=== PATIENT | female | born 1945 | race Caucasian/White ===

== ENCOUNTER 2020-12-17 07:51 | Emergency (ER) | payer OTHER ==
[~2020-12-17] VITALS: Ht 154.9 cm; Wt 86.2 kg
[~2020-12-17 07:51] MED LIST: HYDACE5 PO
[2020-12-17 08:28] LABS: BASOPHILS ABSOLUTE AUTO 0.03 K/mm3 (0.00-0.23); BASOPHILS PERCENT AUTO 0 % (0-2); EOSINOPHILS ABSOLUTE AUTO 0.16 K/mm3 (0.00-0.68); EOSINOPHILS PERCENT AUTO 2 % (0-6); Hematocrit 36.1 % (33.0-51.0); Hemoglobin 11.4 g/dL (11.5-16.0); IMMATURE GRAN ABSOLUTE AUTO 0.03 K/mm3 (0.00-0.10); IMMATURE GRAN PERCENT AUTO 0 % (0-1); LYMPHOCYTES ABSOLUTE AUTO 1.06 K/mm3 (0.84-5.20); LYMPHOCYTES PERCENT AUTO 11 % (21-46); MONOCYTES ABSOLUTE AUTO 0.33 K/mm3 (0.16-1.47); MONOCYTES PERCENT AUTO 4 % (4-13); Mean Corpuscular HGB 28.1 pg (26.0-34.0); Mean Corpuscular HGB Conc 31.6 g/dL (31.5-36.5); Mean Corpuscular Volume 89 fL (80-100); Mean Platelet Volume 9.5 fL (9.1-12.4); NEUTROPHILS ABSOLUTE AUTO 7.65 K/mm3 (1.96-9.15); NEUTROPHILS PERCENT AUTO 83 % (41-73); Platelet Count 237 K/mm3 (150-400); RDW Coefficient Variation 14.9 % (11.7-14.2); RDW Standard Deviation 49.3 fL (35.1-46.3); Red Blood Cell Count 4.05 M/mm3 (3.80-5.20); White Blood Cell Count 9.26 K/mm3 (4.00-11.30)
[2020-12-17 08:41] LABS: Alanine Aminotransfer (ALT/SGP 19 U/L (12-78); Albumin, Blood 3.6 g/dL (3.4-5.0); Alk Phos 80 U/L (50-136); Anion Gap 6 mmol/L (6-16); Aspartate Aminotrans (AST/SGOT 13 U/L (12-37); Bilirubin, Total 0.8 mg/dL (0.1-1.0); Blood Urea Nitrogen 11 mg/dL (8-24); Bun/Creatinine Ratio 17.6 (12.0-20.0); CO2, Blood 27 mmol/L (21-32); Calcium, Blood 8.9 mg/dL (8.5-10.1); Chloride, Blood 107 mmol/L (98-108); Creatinine, Blood 0.63 mg/dL (0.40-1.00); Globulin, Blood 3.7 g/dL (2.2-4.0); Glomerular Filtration Rate >60 (60-); Glucose, Blood 155 mg/dL (70-99); Potassium, Blood 3.3 mmol/L (3.5-5.5); Sodium, Blood 140 mmol/L (136-145); Total Protein, Blood 7.3 g/dL (6.4-8.2)
[2020-12-17] MEDS ORDERED: Zofran4 MG PO (10:08)
[2021-02-09] MEDS ORDERED: CLOBET30L TOP (13:31)
[2021-02-21] MEDS ORDERED: ACET325 PO (13:58)
[2021-02-21] MEDS ORDERED: DOCU100 PO (13:59)
[2021-02-21] MEDS ORDERED: OXAYDO5 M1 PO (14:01)
== END 2020-12-17 10:19 | disposition home or self-care (01) ==
LOC: ER 07:51
PROVIDERS: Physician Assistant
DX: K43.9 Ventral hernia without obstruction or gangrene (principal); Z88.5 Allergy status to narcotic agent
CPT/HCPCS: 36415; 74160; 80053; 83690; 85025; 96374-59; 99284-25; J3010; J7030; Q9967

== ENCOUNTER 2021-02-14 10:50 | Day surgery (SDC) | payer OTHER ==
[~2021-02-14] VITALS: Ht 154.9 cm; Wt 74.9 kg
[~2021-02-14 10:50] MED LIST changes: +CLOBET30L TOP; +Zofran4 MG PO
== END 2021-02-14 13:57 | disposition home or self-care (01) ==
LOC: ORSCSDS 10:50
PROVIDERS: Surgery
PROC: 0DJD8ZZ Inspection of Lower Intestinal Tract, Via Natural or Artificial Opening Endoscopic (ICD-10-PCS; principal; 2021-02-14 12:00)
DX: Z12.11 Encounter for screening for malignant neoplasm of colon (principal); D50.9 Iron deficiency anemia, unspecified; K57.30 Diverticulosis of large intestine without perforation or abscess without bleeding; R10.30 Lower abdominal pain, unspecified; E78.00 Pure hypercholesterolemia, unspecified; R73.9 Hyperglycemia, unspecified; E66.9 Obesity, unspecified; Z68.33 Body mass index [BMI] 33.0-33.9, adult; Z79.899 Other long term (current) drug therapy
CPT/HCPCS: J2001; J2704; J7120

== ENCOUNTER → 2023-01-23 | Outpatient (CLI) | payer OTHER ==
[~2023-01-23] MED LIST changes: +ACET325 PO; +DOCU100 PO; +OXAYDO5 M1 PO
== END ==
LOC: LAB 08:05 → PLD 08:05 → LAB SHORT 08:05
DX: L60.2 Onychogryphosis (principal); B35.1 Tinea unguium
CPT/HCPCS: 88304; 88312

== ENCOUNTER → 2023-05-06 | Outpatient (CLI) | payer OTHER ==
[2023-05-06 08:29] LABS: BASOPHILS ABSOLUTE AUTO 0.03 K/mm3 (0.00-0.23); BASOPHILS PERCENT AUTO 1 % (0-2); EOSINOPHILS ABSOLUTE AUTO 0.09 K/mm3 (0.00-0.68); EOSINOPHILS PERCENT AUTO 2 % (0-6); Hematocrit 29.8 % (33.0-51.0); Hemoglobin 9.8 g/dL (11.5-16.0); IMMATURE GRAN ABSOLUTE AUTO 0.01 K/mm3 (0.00-0.10); IMMATURE GRAN PERCENT AUTO 0 % (0-1); LYMPHOCYTES ABSOLUTE AUTO 0.67 K/mm3 (0.84-5.20); LYMPHOCYTES PERCENT AUTO 11 % (21-46); MONOCYTES ABSOLUTE AUTO 0.42 K/mm3 (0.16-1.47); MONOCYTES PERCENT AUTO 7 % (4-13); Mean Corpuscular HGB 28.4 pg (26.0-34.0); Mean Corpuscular HGB Conc 32.9 g/dL (31.5-36.5); Mean Corpuscular Volume 86 fL (80-100); Mean Platelet Volume 8.8 fL (9.1-12.4); NEUTROPHILS ABSOLUTE AUTO 4.82 K/mm3 (1.96-9.15); NEUTROPHILS PERCENT AUTO 80 % (41-73); Platelet Count 307 K/mm3 (150-400); RDW Coefficient Variation 14.9 % (11.7-14.2); RDW Standard Deviation 47.4 fL (35.1-46.3); Red Blood Cell Count 3.45 M/mm3 (3.80-5.20); White Blood Cell Count 6.04 K/mm3 (4.00-11.30)
[2023-05-06 08:44] LABS: Albumin, Blood 3.1 g/dL (3.4-5.0); Albumin/Globulin Ratio 0.7 (0.8-1.8); Bilirubin, Total 0.4 mg/dL (0.1-1.0); Bun/Creatinine Ratio 17.5 (12.0-20.0); Calcium, Blood 9.1 mg/dL (8.5-10.1); Creatinine, Blood 0.57 mg/dL (0.40-1.00); Globulin, Blood 4.3 g/dL (2.2-4.0); Potassium, Blood 3.7 mmol/L (3.5-5.5); Total Protein, Blood 7.4 g/dL (6.4-8.2)
== END | disposition home or self-care (01) ==
LOC: LAB SHORT 08:24 → LAB 08:24
PROVIDERS: Physician Assistant
DX: M25.431 Effusion, right wrist (principal); M25.432 Effusion, left wrist
CPT/HCPCS: 80053; 85025; 85651

== ENCOUNTER 2024-09-11 11:45 | Inpatient (IN) | payer OTHER ==
[~2024-09-11] VITALS: Ht 152.4 cm; Wt 74.8 kg
[2024-09-11] MEDS ORDERED: EUTHYROX50 MC1 PO (12:48)
[2024-09-11] MEDS ORDERED: Prednisone2.5 MG PO (12:48)
[2024-09-11] MEDS ORDERED: NS 1,000 ML IV SCH (13:15)
[2024-09-11 13:43] LABS: Source, Urine Clean Catch
[2024-09-11 13:48] LABS: BASOPHILS ABSOLUTE AUTO 0.02 K/mm3 (0.00-0.23); BASOPHILS PERCENT AUTO 0 % (0-2); EOSINOPHILS ABSOLUTE AUTO 0.01 K/mm3 (0.00-0.68); EOSINOPHILS PERCENT AUTO 0 % (0-6); Hematocrit 29.1 % (33.0-51.0); Hemoglobin 9.4 g/dL (11.5-16.0); IMMATURE GRAN ABSOLUTE AUTO 0.13 K/mm3 (0.00-0.10); IMMATURE GRAN PERCENT AUTO 1 % (0-1); LYMPHOCYTES ABSOLUTE AUTO 0.58 K/mm3 (0.84-5.20); LYMPHOCYTES PERCENT AUTO 4 % (21-46); MONOCYTES ABSOLUTE AUTO 0.92 K/mm3 (0.16-1.47); MONOCYTES PERCENT AUTO 7 % (4-13); Mean Corpuscular HGB 27.2 pg (26.0-34.0); Mean Corpuscular HGB Conc 32.3 g/dL (31.5-36.5); Mean Corpuscular Volume 84 fL (80-100); Mean Platelet Volume 9.9 fL (9.1-12.4); NEUTROPHILS ABSOLUTE AUTO 12.33 K/mm3 (1.96-9.15); NEUTROPHILS PERCENT AUTO 88 % (41-73); Platelet Count 274 K/mm3 (150-400); RDW Coefficient Variation 15.6 % (11.7-14.2); RDW Standard Deviation 47.4 fL (35.1-46.3); Red Blood Cell Count 3.46 M/mm3 (3.80-5.20); White Blood Cell Count 13.99 K/mm3 (4.00-11.30)
[2024-09-11 13:51] LABS: Appearance, Urine Clear (Clear); Bilirubin, Urine Neg (Neg); Blood, Urine 3+ (Neg); Color, Urine Amber (P-Yellow); Glucose Qualitative, Urine Neg (Neg); Ketones, Urine 3+ (Neg); Leukocyte Esterase, Urine 1+ (Neg); Nitrite, Urine Neg (Neg); Protein, Urine 3+ (Neg); Specific Gravity, Urine 1.015 (1.003-1.022); Urobilinogen, Urine 1+ (Normal)
[2024-09-11 13:57] LABS: Bacteria Many /hpf; Mucus Light (0-Heavy); Squamous Epithelial Cells Few /hpf (Few)
[2024-09-11 14:16] LABS: Magnesium, Blood 1.9 mg/dL (1.6-2.4)
[2024-09-11 14:17] LABS: Albumin, Blood 2.4 g/dL (3.4-5.0); Albumin/Globulin Ratio 0.6 (0.8-1.8); Bilirubin, Total 0.7 mg/dL (0.1-1.0); Bun/Creatinine Ratio 22.5 (12.0-20.0); Calcium, Blood 8.6 mg/dL (8.5-10.1); Creatinine, Blood 0.67 mg/dL (0.40-1.00); Globulin, Blood 4.3 g/dL (2.2-4.0); Potassium, Blood 3.1 mmol/L (3.5-5.5); Total Protein, Blood 6.7 g/dL (6.4-8.2)
[2024-09-11] MEDS ORDERED: CefTRIAXone Sodium 1,000 MG in NS 50 ML IV ONE (14:20)
[2024-09-11 14:22] LABS: Free Thyroxine 1.45 ng/dL (0.70-1.60)
[2024-09-11 14:25] LABS: Thyroid Stimulating Hormone 0.713 uIU/mL (0.360-4.800)
[2024-09-11] MEDS ORDERED: Azithromycin 500 MG in NS 250 ML IV ONE (14:25)
[2024-09-11] MEDS ORDERED: Potassium Chloride 20 MEQ/15 ML UDC PO ONE (14:30)
[2024-09-11] MEDS ORDERED: Potassium Chloride 20 MEQ TabCR PO ONE (14:30)
[2024-09-11 14:37] LABS: Influenza A, PCR NEGATIVE (NEGATIVE); Influenza B, PCR NEGATIVE (NEGATIVE); Resp Syncytial Virus, PCR NEGATIVE (NEGATIVE)
[2024-09-11] MEDS ORDERED: NS 1,500 ML IV SCH (15:00)
[2024-09-11] MEDS ORDERED: FLU VACC TS2024-25(6MOS UP)/PF 45 MCG/0.5 ML SYRINGE IM SCH (15:20)
[2024-09-11 16:44] LABS: SARS-Cov-2 (COVID-19) PCR, MMC POSITIVE (NEGATIVE)
[2024-09-11 17:59] VITALS: BP 108/72
[2024-09-11 19:40] VITALS: BP 125/72
[2024-09-12 03:45] VITALS: BP 127/72
[2024-09-12] MEDS ORDERED: Levothyroxine Sodium 0.05 MG Tab PO SCH (06:00)
[2024-09-12 07:46] VITALS: BP 140/64
[2024-09-12 08:48] LABS: BASOPHILS ABSOLUTE AUTO 0.02 K/mm3 (0.00-0.23); BASOPHILS PERCENT AUTO 0 % (0-2); EOSINOPHILS ABSOLUTE AUTO 0.13 K/mm3 (0.00-0.68); EOSINOPHILS PERCENT AUTO 1 % (0-6); Hematocrit 28.2 % (33.0-51.0); IMMATURE GRAN ABSOLUTE AUTO 0.09 K/mm3 (0.00-0.10); IMMATURE GRAN PERCENT AUTO 1 % (0-1); LYMPHOCYTES ABSOLUTE AUTO 0.88 K/mm3 (0.84-5.20); LYMPHOCYTES PERCENT AUTO 9 % (21-46); MONOCYTES ABSOLUTE AUTO 0.79 K/mm3 (0.16-1.47); MONOCYTES PERCENT AUTO 8 % (4-13); Mean Corpuscular HGB 26.6 pg (26.0-34.0); Mean Corpuscular HGB Conc 31.9 g/dL (31.5-36.5); Mean Corpuscular Volume 83 fL (80-100); Mean Platelet Volume 9.8 fL (9.1-12.4); NEUTROPHILS ABSOLUTE AUTO 7.81 K/mm3 (1.96-9.15); NEUTROPHILS PERCENT AUTO 80 % (41-73); Platelet Count 281 K/mm3 (150-400); RDW Coefficient Variation 15.8 % (11.7-14.2); RDW Standard Deviation 48.2 fL (35.1-46.3); Red Blood Cell Count 3.38 M/mm3 (3.80-5.20); White Blood Cell Count 9.72 K/mm3 (4.00-11.30)
[2024-09-12] MEDS ORDERED: Enoxaparin 40 MG/0.4 ML SYR SC SCH (09:00)
[2024-09-12 09:06] LABS: Bun/Creatinine Ratio 14.8 (12.0-20.0); Calcium, Blood 8.3 mg/dL (8.5-10.1); Creatinine, Blood 0.61 mg/dL (0.40-1.00); Potassium, Blood 3.5 mmol/L (3.5-5.5)
[2024-09-12] MEDS ORDERED: Loperamide HCl 2 MG Cap PO PRN (09:15)
[2024-09-12 17:06] VITALS: BP 135/67
[2024-09-12] MEDS ORDERED: NS 250 ML IV PRN (17:15)
[2024-09-12] MEDS ORDERED: CefTRIAXone Sodium 1,000 MG in NS 100 ML IV SCH (18:00)
[2024-09-12] MEDS ORDERED: Azithromycin 500 MG in NS 250 ML IV SCH (18:00)
--- NOTE | 2024-09-12 18:11 | NUR ---
NO ACUTE CHANGES, ALERT AND ORIENTED X4, CLEARLY MAKES NEEDS KNOWN, MEDICATED FOR DIARREA, BARRIER CREAM TO COCCYX FOR IRRITATION, CALL LIGHT WITH IN REACH, WILL RELAY TO PM RN
[2024-09-12 19:27] VITALS: BP 135/76
[2024-09-13 04:17] VITALS: BP 151/76
--- NOTE | 2024-09-13 05:04 | NUR ---
INVENTORY CONTROL PLANNER SUMMARY NO ACUTE CHANGES OVERNIGHT. SEE ASSESSMENT CHARTING, VITAL SIGNS AND EMAR. PT APPEARED TO SLEEP WELL. SHE DENIES COMPLAINTS OTHER THAN AN OCCASIONAL DRY COUGH THAT DOES CAUSE HER SOME DISCOMFORT.
[2024-09-13 06:28] LABS: BASOPHILS ABSOLUTE AUTO 0.02 K/mm3 (0.00-0.23); BASOPHILS PERCENT AUTO 0 % (0-2); EOSINOPHILS ABSOLUTE AUTO 0.23 K/mm3 (0.00-0.68); EOSINOPHILS PERCENT AUTO 3 % (0-6); Hematocrit 25.1 % (33.0-51.0); Hemoglobin 8.1 g/dL (11.5-16.0); IMMATURE GRAN ABSOLUTE AUTO 0.09 K/mm3 (0.00-0.10); IMMATURE GRAN PERCENT AUTO 1 % (0-1); LYMPHOCYTES ABSOLUTE AUTO 0.91 K/mm3 (0.84-5.20); LYMPHOCYTES PERCENT AUTO 12 % (21-46); MONOCYTES ABSOLUTE AUTO 0.59 K/mm3 (0.16-1.47); MONOCYTES PERCENT AUTO 8 % (4-13); Mean Corpuscular HGB 26.8 pg (26.0-34.0); Mean Corpuscular HGB Conc 32.3 g/dL (31.5-36.5); Mean Corpuscular Volume 83 fL (80-100); Mean Platelet Volume 9.7 fL (9.1-12.4); NEUTROPHILS ABSOLUTE AUTO 5.87 K/mm3 (1.96-9.15); NEUTROPHILS PERCENT AUTO 76 % (41-73); Platelet Count 266 K/mm3 (150-400); RDW Coefficient Variation 15.8 % (11.7-14.2); RDW Standard Deviation 48.4 fL (35.1-46.3); Red Blood Cell Count 3.02 M/mm3 (3.80-5.20); White Blood Cell Count 7.71 K/mm3 (4.00-11.30)
[2024-09-13 07:03] LABS: Bun/Creatinine Ratio 10.1 (12.0-20.0); Calcium, Blood 8.4 mg/dL (8.5-10.1); Creatinine, Blood 0.59 mg/dL (0.40-1.00)
[2024-09-13 07:36] VITALS: BP 141/71
[2024-09-13] MEDS ORDERED: Potassium Chloride 20 MEQ TabCR PO ONE (10:00)
[2024-09-13 15:35] VITALS: BP 151/80
--- NOTE | 2024-09-13 16:42 | NUR ---
ALERT AND ORIENTED X4, CLEARLY MAKES NEEDS KNOWN, AMBULATED IN ROOM INDEPENDANT WITH FWW AND GAIT BELT, STAND BY ASSIST. MEDICATED WITH IMMODIUM, DIARRHEA RESOLVED, POTASSIUM SUPPLEMENTS GIVEN. DR GRAY ROUNDED, NO ACUTE CHANGES, CALL LIGHT WITH IN REACH, WILL RELAY TO PM RN
[2024-09-13 19:44] VITALS: BP 132/72
[2024-09-14 03:06] VITALS: BP 135/72
--- NOTE | 2024-09-14 04:15 | NUR ---
SUPERVISOR DYER SUMMARY NO ACUTE CHANGES OVERNIGHT. SEE ASSESSMENT CHARTING, VITAL SIGNS AND EMAR. PT IS MUCH LESS WEAK THAN SHE WAS A COUPLE NIGHTS AGO. SHE IS MOBILIZING WITH STAND BY ASSIST AND IT APPEARS THAT SHE WILL DO WELL IN HER HOME ENVIRONMENT WITH FAMILY AND HOME HEALTH SUPPORT. SHE IS NOT REQUIRING OXYGEN AND STILL HAS A HACKING COUGH WITH OCCASIONAL SPUTUM PRODUCTION.
[2024-09-14 07:20] VITALS: BP 142/79
[2024-09-14 16:06] VITALS: BP 128/76
--- NOTE | 2024-09-14 17:48 | NUR ---
PATIENT A/O X 4. PATIENT CURRENTLY IN AEROSOL PRECAUTIONS DUE TO COVID +. PATIENT HAS BEEN UP IN HER CHAIR TODAY WITH STANDBY ASSIT. PATIENT HAS HAD NO COMPLAINTS THIS SHIFT. PATIENT CURRENTLY PLAN IS TO DISCHARGE TOMORROW WITH DME WHICH IS BEING MANAGED BY CASE MANAGMENT. PATIENT DENIES ANY OTHER ISSUES AND WILL FOR FOR ANY ASSISTANCE.
[2024-09-14 19:28] VITALS: BP 135/72
[2024-09-14] MEDS ORDERED: Potassium Chloride 20 MEQ TabCR PO SCH (21:00)
[2024-09-14] MEDS ORDERED: Dexamethasone 2 MG Tab PO SCH (21:00)
--- NOTE | 2024-09-15 00:45 | NUR ---
09/14/241929 PT LYING IN BED, REPORTS SOB WITH EXERTION, ON RA AT 100%. TELE IS NSR AT 71. PT HAS A DRY COUGH. DENIES NEED FOR ANYTHING AT THIS TIME. NO APPARENT SIGNS OF DISTRESS. CALL LIGHT IS IN REACH.
--- NOTE | 2024-09-15 00:46 | NUR ---
09/14/24 2200 PT LYING IN BED, EYES CLOSED, APPEARS TO BE RESTING. BREATHING IS EVEN, UNLABORED. NO APPARENT SIGNS OF DISTRESS. CALL LIGHT IS IN REACH.
--- NOTE | 2024-09-15 00:47 | NUR ---
09/14/24 2330 PT LYING IN BED, WAKES EASILY TO VERBAL STIMULI. NO APPARENT SIGNS OF DISTRESS. CALL LIGHT IS IN REACH. DENIES NEED FOR ANYTHING AT THIS TIME.
--- NOTE | 2024-09-15 02:00 | NUR ---
ASSISTED PT TO BSC/ATTENDS CHANGE, AND BACK TO BED AGAIN. PT IS DECLINING TO WEAR SCD'S AT THIS TIME, IS ON LOVENOX. NO OTHER APPARENT SIGNS OF DISTRESS. CALL LIGHT IS IN REACH.
[2024-09-15 02:03] VITALS: BP 143/79
--- NOTE | 2024-09-15 03:52 | NUR ---
PT LYING IN BED, EYES CLOSED, APPEARS TO BE RESTING. BREATHING IS EVEN, UNLABORED. NO APPARENT SIGNS OF DISTRESS. CALL LIGHT IS IN REACH.
--- NOTE | 2024-09-15 03:53 | NUR ---
PT IS AAO X 4. REPORTS A LITTLE SOB WITH EXERTION, ON RA AT 100%. TELE NSR. DRY COUGH.
[2024-09-15] MEDS ORDERED: Benzonatate 100 MG Cap PO PRN (04:55)
[2024-09-15 05:37] LABS: BASOPHILS ABSOLUTE AUTO 0.02 K/mm3 (0.00-0.23); BASOPHILS PERCENT AUTO 0 % (0-2); EOSINOPHILS ABSOLUTE AUTO 0.03 K/mm3 (0.00-0.68); EOSINOPHILS PERCENT AUTO 0 % (0-6); Hemoglobin 8.8 g/dL (11.5-16.0); IMMATURE GRAN PERCENT AUTO 2 % (0-1); LYMPHOCYTES PERCENT AUTO 6 % (21-46); MONOCYTES ABSOLUTE AUTO 0.14 K/mm3 (0.16-1.47); MONOCYTES PERCENT AUTO 2 % (4-13); Mean Corpuscular HGB 26.8 pg (26.0-34.0); Mean Corpuscular HGB Conc 32.6 g/dL (31.5-36.5); Mean Corpuscular Volume 82 fL (80-100); Mean Platelet Volume 9.6 fL (9.1-12.4); NEUTROPHILS ABSOLUTE AUTO 7.63 K/mm3 (1.96-9.15); NEUTROPHILS PERCENT AUTO 90 % (41-73); Platelet Count 370 K/mm3 (150-400); RDW Coefficient Variation 15.7 % (11.7-14.2); RDW Standard Deviation 47.5 fL (35.1-46.3); Red Blood Cell Count 3.28 M/mm3 (3.80-5.20); White Blood Cell Count 8.52 K/mm3 (4.00-11.30)
--- NOTE | 2024-09-15 06:01 | NUR ---
PT LYING IN BED, EYES CLOSED, APPEARS TO BE RESTING. BREATHING IS EVEN, UNLABORED. NO APPARENT SIGNS OF DISTRESS. CALL LIGHT IS IN REACH. NO OTHER CHANGES THIS SHIFT.
[2024-09-15 06:12] LABS: Magnesium, Blood 1.9 mg/dL (1.6-2.4)
[2024-09-15 06:13] LABS: Albumin, Blood 2.2 g/dL (3.4-5.0); Albumin/Globulin Ratio 0.5 (0.8-1.8); Bilirubin, Total 0.3 mg/dL (0.1-1.0); Bun/Creatinine Ratio 11.2 (12.0-20.0); Calcium, Blood 8.9 mg/dL (8.5-10.1); Creatinine, Blood 0.54 mg/dL (0.40-1.00); Globulin, Blood 4.1 g/dL (2.2-4.0); Potassium, Blood 4.2 mmol/L (3.5-5.5); Total Protein, Blood 6.3 g/dL (6.4-8.2)
[2024-09-15 07:20] VITALS: BP 150/88
[2024-09-15] MEDS ORDERED: Tessalon200 MG PO (12:45)
[2024-09-15] MEDS ORDERED: CEFD300 PO (12:48)
--- NOTE | 2024-09-15 17:38 | NUR ---
LATE ENTRY- PT DISCHARGED HOME, DAUGHTER AT BEDSIDE. DISCHARGED INSTRUCTIONS DISCUSSED WITH PT AND DAUGHTER, NO QUESTIONS AT THIS TIME. WHILE GOING OVER PT DISCHARGE MED LIST, DAUGHTER AND PT RESPECTFULLY STATED THAT SHE WILL NOT BE TAKING THE PREDNISONE PRESCRIBED AND WOULD BE SPEAKING WITH PCP TOMORROW. EDUCATION PROVIDED AND EMPHASIZED IMPORTANCE OF TAKING MEDICATIONS PRESCRIBED AND TO FOLLOW UP WITH PCP SOON POSSIBLE TO DISCUSS MEDICATION CONCERNS.
== END 2024-09-15 16:33 | disposition home health service (06) | DRG 871 ==
LOC: ER 11:45 → MEDS 15:19 → ERHOLD 15:19 → EDBEDREQ 15:30 → MEDS 17:50 → ENPENDDIS 09-15 13:02 → MEDS 09-15 15:33
PROVIDERS: Internal Medicine; Student in an Organized Health Care Education/Training Program; ADMIT Internal Medicine
PROC: 3E0DX3Z Introduction of Anti-inflammatory into Mouth and Pharynx, External Approach (ICD-10-PCS; principal; 2024-09-11)
PROC: 3E03329 Introduction of Other Anti-infective into Peripheral Vein, Percutaneous Approach (ICD-10-PCS; principal; 2024-09-11)
DX: A41.89 Other specified sepsis (principal); J12.82 Pneumonia due to coronavirus disease 2019; U07.1 COVID-19; J13 Pneumonia due to Streptococcus pneumoniae; I50.32 Chronic diastolic (congestive) heart failure; Z66 Do not resuscitate; D72.829 Elevated white blood cell count, unspecified; E87.6 Hypokalemia; E66.9 Obesity, unspecified; E78.5 Hyperlipidemia, unspecified; M35.3 Polymyalgia rheumatica; M17.11 Unilateral primary osteoarthritis, right knee; E03.9 Hypothyroidism, unspecified; R82.81 Pyuria; D63.8 Anemia in other chronic diseases classified elsewhere; R53.1 Weakness; M25.461 Effusion, right knee; Z98.890 Other specified postprocedural states; Z88.5 Allergy status to narcotic agent; Z79.890 Hormone replacement therapy; Z79.52 Long term (current) use of systemic steroids; Z87.19 Personal history of other diseases of the digestive system; Z68.28 Body mass index [BMI] 28.0-28.9, adult; Z28.21 Immunization not carried out because of patient refusal; Z79.899 Other long term (current) drug therapy
CPT/HCPCS: 0241U; 36415; 51701; 71046; 73562-RT; 80048; 80053; 81001; 83605; 83735; 84145; 84439; 84443; 85025; 87040; 87070; 87086; 87184; 87205; 93005; 93010; 96361; 96365; 97110; 97116; 97161; 97165; 97530; 97535; 99285-25; A9270; J0456; J0696; J1650; J7030; J7050